=== PATIENT | female | born 1980 | race Caucasian/White ===

== ENCOUNTER 2020-02-15 12:24 | Outpatient (CLI) | payer BC, SELFPAY ==
--- NOTE | 2020-02-15 12:42 | MR_ITS ---
WS: [id number] MRI LUMBAR SPINE NONCONTRAST TECHNIQUE: Sagittal T1, T2 and STIR imaging. Axial T1 and T2 imaging. CLINICAL INFORMATION: LOW BACK PAIN COMPARISON: None. FINDINGS: Mild lumbar curve. No acute compression. No high-grade central canal stenosis. No acute compression f ractures. L1-L2: Slight right subarticular disc bulging. Narrowing of the right subarticular recess. Spinal can al and foramen are patent. Mild facet arthropathy. L2-L3: Mild annular bulging with slight narrowing of the right subarticular recess. Mild right and no significant left foraminal narrowing. Mild facet arthropathy. L3-L4: Mild annular bulging. Mild facet arthropathy. Mild right and no significant left foraminal adonay rowing. L4-L5: Mild annular bulging with slight effacement of ventral thecal sac. Narrowing of the subarticul ar recess bilaterally. Mild bilateral foraminal narrowing. Left foramen is patent. Moderate facet art hropathy. L5-S1: Mild annular bulging with a tiny shallow central protrusion. Mild left foraminal narrowing. Mo derate facet arthropathy. Visualized pelvic bony structures: Normal. Paravertebral soft tissues: Normal. MR/MR lumbar spine wo con* [id number] IMPRESSION: 1. Mild lumbar curve. No acute compression. No high-grade central canal stenos is. 2. Annular bulging L4-5 with narrowing of the subarticular recess bilaterally. Mild bilateral L4-5 foraminal narrowing encroaches on the exiting L4 nerve radha ts bilaterally. 3. Tiny shallow central protrusion L5-S1 with slight encroachment traversing S 1 nerve roots. Mild left L5-S1 foraminal narrowing. 4. Narrowing of the right subarticular recess L1-2 and L2-3 due to shallow dis c bulging. 5. Mild to moderate facet arthropathy L4-L5 and L5-S1.
== END 2020-02-15 12:25 | disposition home or self-care (01) ==
LOC: RADWPI 12:31
PROVIDERS: Family Provider Family Medicine; PCP Family Medicine; Visit Provider Anesthesiology Pain Medicine
DX: M47.816 Spondylosis without myelopathy or radiculopathy, lumbar region (principal); M47.817 Spondylosis without myelopathy or radiculopathy, lumbosacral region; M51.26 Other intervertebral disc displacement, lumbar region; M51.27 Other intervertebral disc displacement, lumbosacral region
CPT/HCPCS: 72148

== ENCOUNTER → 2020-03-12 15:09 | Outpatient (BNVA) | payer BC, SELFPAY | PROVIDERS: Family Provider Family Medicine; PCP Family Medicine; Referring Provider Family Medicine; Visit Provider Specialist | DX: M17.12 Unilateral primary osteoarthritis, left knee (principal); E66.01 Morbid (severe) obesity due to excess calories | CPT/HCPCS: 73560; 73565 ==